=== PATIENT | female | born 1975 | race Two or more races ===

== ENCOUNTER 2023-10-05 18:29 | Emergency (ER) | payer BC, MEDICAID ==
[~2023-10-05] VITALS: Ht 149.9 cm; Wt 85.2 kg
[2023-10-05 18:40] VITALS: BP 118/71; PULSE 73; RESP 18; O2SAT 96
[2023-10-05] MEDS ORDERED: DexAMETHasone SOD PHOS 10MG/1ML VIAL INJ IM ONE (19:45)
[2023-10-05] MEDS ORDERED: KETOROLAC TROMETH 60MG/2ML VIAL IM ONE (19:45)
[2023-10-05] MEDS ORDERED: HYDROcodone-ACET 5/325MG TAB PO ONE (19:45)
[2023-10-05] MEDS ORDERED: HYDR-4902 PO (20:03)
== END 2023-10-05 20:35 | disposition home or self-care (01) ==
LOC: ER 18:29
DX: G56.01 Carpal tunnel syndrome, right upper limb (principal); M25.531 Pain in right wrist; Z90.710 Acquired absence of both cervix and uterus
CPT/HCPCS: 29125; 96372; 99284; J1100; J1885